=== PATIENT | female | born 1975 | race Caucasian/White ===

== ENCOUNTER → 2017-06-19 | Day surgery (SDC) | payer BC ==
--- NOTE | ~2017-06-19 | OR ---
Unit #: [id number] #: [id number] Patient: KAYLAN STOCKTON [id number] [address] [place], [place] [address] [id number] MR#: [id number] NAME: KAYLAN STOCKTON ROOM: Date of Procedure: 06/19/2017 Admission Date: 06/19/2017 Surgeon: Naveed Gray III, M.D. : 1975 Attending Physician: Naveed Gray III, M.D. Primary Care Physician: Generic Doctor Not In System OPERATIVE REPORT PREOPERATIVE DIAGNOSIS Left anterior thigh hematoma secondary to dog bite. POSTOPERATIVE DIAGNOSIS Left anterior thigh hematoma secondary to dog bite. PROCEDURE PERFORMED Evacuation of left thigh hematoma. ANESTHESIA General. SPECIMENS None. COMPLICATIONS None apparent. INDICATION FOR PROCEDURE This is a 42-year-old lady who is a couple of weeks out from a bite from [email or web address]. She suffered an enlarging hematoma that has not resolved with conservative measures. She is here today for evacuation of the hematoma. DESCRIPTION OF PROCEDURE After consent was obtained, the patient was brought to the operating room and placed in the supine position. General anesthetic was administered and her anterior left thigh was prepped and draped in standard surgical fashion. I made an elliptical incision overlying the area. They incorporated a 2 cm eschar. This area was excised and led me to a hematoma cavity that was filled with clotted blood. I irrigated this out and broke up all the loculated areas. Because there was just some mild oozing from the muscle, I felt it was prudent to place a flat TAMMI drain. I placed a 7-Gabonese flat TAMMI drain and brought it out through the inferior portion of the incision. It was secured to the level of skin with a 2-0 silk suture. I then closed the incision with a running 4-0 Vicryl subcuticular suture. Steri-Strips were then applied. The patient tolerated the procedure without any problems and returned to the recovery room in stable condition. Dictated by... Unit #: [id number] #: [id number] Patient: KAYLAN STOCKTON Naveed Gray III, M.D. VCL/noah TD: 06/22/2017 11:16 JOB #: [id number] OPERATIVE REPORT Page 1 of 1 X Naveed Gray III, MD PROCEDURE OPERATIVE NOTE
[2017-06-19 07:08] LABS: HEMATOCRIT 33.8 % (35.0-45.0); HEMOGLOBIN 11.3 gm/dL (12.0-16.0); MEAN CELL VOLUME 89.3 FL (83-96); MEAN CORPUSCULAR HEMOGLOBIN 29.8 PG (28-34); MEAN CORPUSCULAR HGB CONC 33.4 g/dL (30-36); MEAN PLATELET VOLUME 8.6 FL (6.5-11.5); RED BLOOD COUNT 3.79 X10e (3.90-5.30); RED CELL DISTRIBUTION WIDTH 12.9 % (11.0-15.5); WHITE BLOOD COUNT 5.1 X10e3 (4.0-10.5)
[2017-06-19 07:19] LABS: PROTHROMBIN TIME (PATIENT) 10.6 SECONDS (10.0-11.7)
== END | disposition home or self-care (01) ==
LOC: CSUR 06:16
PROVIDERS: Surgery
DX: S70.12XA Contusion of left thigh, initial encounter (principal); W54.0XXA Bitten by dog, initial encounter; Z90.49 Acquired absence of other specified parts of digestive tract; Z98.890 Other specified postprocedural states; G43.909 Migraine, unspecified, not intractable, without status migrainosus
CPT/HCPCS: 84703; 85027; 85610; 88304; 88312; J0690; J2250; J2405; J3010